=== PATIENT | female | born 1965 | race African-American/Black ===

== ENCOUNTER 2017-01-13 16:15 | Emergency (ER) | payer MEDICAID ==
[~2017-01-13] VITALS: Ht 160 cm; Wt 66.0 kg
[~2017-01-13 16:15] MED LIST: ALBU17I INH; ALBU8I INH; MEDR4PAK3 PO; PRED5PAK PO; VENTAER INH; ZITH250T PO
[2017-01-13 16:18] VITALS: BP 159/101; PULSE 104; RESP 16; TEMP 98.9; O2SAT 97
[2017-01-13] MEDS ORDERED: SODIUM CHLORIDE 0.9% FLUSH 10 ML FLUSH IVF PRN (16:30)
[2017-01-13] MEDS ORDERED: methylPREDNISolone SOD SUCC 125 MG/2 ML VIAL IVP ONE (16:30)
--- NOTE | 2017-01-13 16:33 | PD ---
HPI Chief Complaint: Respiratory Symptoms Time Seen by Provider: 16:26 Travel History International Travel<30 days: No Contact w/Intl Traveler<30days: No Traveled to known affect area: No History of Present Illness HPI 51-year-old female with history of anemia, asthma, here for evaluation of shortness of breath. The patient reports that stress of breath has been going on for the last week. She has been taking her Singulair and albuterol inhalers without improvement in symptoms. She has a cough productive of mucus. No hemoptysis. She is also having some intermittent sharp substernal chest pains that occur when she coughs. She denies history of cardiac disease. No history of DVT or PE. PFSH Past Medical History Asthma: Yes Diminished Hearing: No Respiratory: Yes (asthma) ?: Not LMP: 01/10/17 : 8 Para: 8 Social History Alcohol Use: No Tobacco Use: No Substance Use: No Allergies-Medications (Allergen,Severity, Reaction): Coded Allergies: Penicillin (Verified Allergy, Severe, RASH,VOMITING, 01/13/17) Reported Meds & Prescriptions Reported Meds & Active Scripts Active Reported Fusion (Multi-Vit/Iron-Vit C-Lactobacillus) 130-25-30 mg Cap 1 Cap PO DAILY Ventolin Hfa 18 GM Inh (Albuterol Sulfate) 90 Mcg/Act Aer 2 Puff INH Q4-6H PRN Singulair (Montelukast Sodium) 5 Mg Chew 5 Mg CHEW HS Iron (Ferrous Sulfate) 50 Mg Tab 50 Mg PO DAILY Review of Systems Except as stated in HPI: all other systems reviewed are Neg Physical Exam Narrative GENERAL: Well-developed, well-nourished, comfortable, no acute distress. SKIN: Focused skin assessment warm/dry. HEAD: Atraumatic. Normocephalic. EYES: Pupils equal and round. No scleral icterus. No injection or drainage. ENT: Mucous membranes pink and moist. NECK: Trachea midline. No JVD. CARDIOVASCULAR: Regular rate and rhythm. RESPIRATORY: No accessory muscle use. Mild end expiratory wheezes bilaterally. No rales or rhonchi. Breath sounds equal bilaterally. GASTROINTESTINAL: Abdomen soft, non-tender, nondistended. MUSCULOSKELETAL: No obvious deformities. No clubbing. No cyanosis. No edema. NEUROLOGICAL: Awake and alert. No obvious cranial nerve deficits. Motor grossly within normal limits. Normal speech. PSYCHIATRIC: Appropriate mood and affect; insight and judgment normal. Data Data Last Documented VS Vital Signs Date Time Temp Pulse Resp B/P Pulse Ox O2 Delivery O2 Flow Rate FiO2 01/13/17 19:10 99.5 106 22 162/90 98 Room Air Orders Complete Blood Count With Diff (01/13/17 16:29) Comprehensive Metabolic Panel (01/13/17 16:29) D-Dimer (01/13/17 16:29) Act Partial Throm Time (Ptt) (01/13/17 16:29) Prothrombin Time / Inr (Pt) (01/13/17 16:29) Ckmb (Isoenzyme) Profile (01/13/17 16:29) Troponin I (01/13/17 16:29) Iv Access Insert/Monitor (01/13/17 16:29) Electrocardiogram (01/13/17 16:29) Ecg Monitoring (01/13/17 16:29) Oximetry (01/13/17 16:29) Chest, Single Ap (01/13/17 16:29) Sodium Chloride 0.9% Flush (Ns Flush) (01/13/17 16:30) Methylprednisolone So Succ Inj (Solumedr (01/13/17 16:30) Albuterol-Ipratropium Neb (Duoneb Neb) (01/13/17 16:30) Beta Hcg (Quant/Titer) (01/13/17 16:29) Influenzae A/B Antigen (01/13/17 16:31) CKMB (01/13/17 17:05) CKMB% (01/13/17 17:05) Ct Pulmonary Angiogram (01/13/17 18:45) Iohexol 350 Inj (Omnipaque 350 Inj) (01/13/17 19:51) Labs Laboratory Tests Test 01/13/17 17:05 White Blood Count 3.5 TH/MM3 Red Blood Count 5.06 MIL/MM3 Hemoglobin 12.4 GM/DL Hematocrit 37.3 % Mean Corpuscular Volume 73.7 FL Mean Corpuscular Hemoglobin 24.5 PG Mean Corpuscular Hemoglobin 33.2 % Concent Red Cell Distribution Width 14.8 % Platelet Count 208 TH/MM3 Mean Platelet Volume 9.4 FL Neutrophils (%) (Auto) 63.2 % Lymphocytes (%) (Auto) 26.3 % Monocytes (%) (Auto) 9.7 % Eosinophils (%) (Auto) 0.4 % Basophils (%) (Auto) 0.4 % Neutrophils # (Auto) 2.3 TH/MM3 Lymphocytes # (Auto) 0.9 TH/MM3 Monocytes # (Auto) 0.3 TH/MM3 Eosinophils # (Auto) 0.0 TH/MM3 Basophils # (Auto) 0.0 TH/MM3 CBC Comment AUTO DIFF Differential Comment AUTO DIFF CONFIRMED Platelet Estimate NORMAL Platelet Morphology Comment NORMAL Prothrombin Time 11.3 SEC Prothromb Time International 1.0 RATIO Ratio Activated Partial 30.2 SEC Thromboplast Time D-Dimer Quantitative (PE/DVT) 0.63 MG/L FEU Sodium Level 143 MEQ/L Potassium Level 3.4 MEQ/L Chloride Level 110 MEQ/L Carbon Dioxide Level 24.5 MEQ/L Anion Gap 9 MEQ/L Blood Urea Nitrogen 10 MG/DL Creatinine 0.65 MG/DL Estimat Glomerular Filtration 116 ML/MIN Rate Random Glucose 117 MG/DL Calcium Level 8.4 MG/DL Total Bilirubin 0.2 MG/DL Aspartate Amino Transf 21 U/L (AST/SGOT) Alanine Aminotransferase 30 U/L (ALT/SGPT) Alkaline Phosphatase 104 U/L Total Creatine Kinase 262 U/L Creatine Kinase MB 1.0 NG/ML Creatine Kinase MB % 0.4 % Troponin I LESS THAN 0.02 NG/ML Total Protein 7.7 GM/DL Albumin 3.4 GM/DL Human Chorionic Gonadotropin, LESS THAN 1 Quant MIU/ML MDM Medical Decision Making Medical Screen Exam Complete: Yes Emergency Medical Condition: Yes Medical Record Reviewed: Yes Interpretation(s) EKG: Sinus, rate 100, left axis deviation, normal intervals, RSR prime, no acute ischemic abnormality. Differential Diagnosis Bronchitis, pneumonia, ACS, pneumothorax, pericarditis, PE Narrative Course Vital signs reviewed. CBC shows WBC 3.5, hemoglobin 12.4, hematocrit 37.3, platelets 208. CMP is remarkable for potassium 3.4, otherwise unremarkable. Cardiac enzymes are negative. Beta hCG is negative. D-dimer is 0.63. Chest x-ray: No acute disease. CT pulmonary angiogram: CONCLUSION: 1. Negative for pulmonary embolism. Minimal dependent atelectasis in the lungs. Presumed cyst left lobe liver. Patient was given 3 DuoNeb treatments and IV Solu-Medrol and reports feeling improved. She is resting comfortably. She was made aware of all findings including presumed cyst of the left lobe of the liver. I do not believe her chest pain is cardiac in nature. She likely has bronchitis. I will discharge her home with a prescription for Z-Iftikhar as well as steroids. She is stable for discharge home with outpatient follow-up with her primary care physician this week. She was informed on when to return to the emergency department pitcher verbalizes understanding and agreement with plan. Diagnosis Primary Impression: Bronchitis Referrals: Primary Care Physician 3 days Additional Instructions: Follow-up with your primary care physician this week. Return to the emergency department for worsening symptoms or any other concerns. Scripts Albuterol 18 GM Inh (Ventolin Hfa 18 GM Inh)90 Mcg/Act Aer2 Puff INH Q4-6H PRN ( SHORTNESS OF BREATH) #1 INHALER Ref 0 Prov:Clifford Poe MD 01/13/17 Prednisone 50 Mg Tab50 Mg PO DAILY 5 Days Ref 0 Prov:Clifford Poe MD 01/13/17 Azithromycin (Zithromax Z-Iftikhar)250 Mg Qwly192 Mg PO DIRECTED #1 DSPK Ref 0 500 MG (2 tabs) day 1, then 1 tab days 2-5. Prov:Clifford Poe MD 01/13/17 Disposition: 01 DISCHARGE HOME Condition: Stable Clifford Poe MD Jan 13, 2017 16:33
[2017-01-13] MEDS ORDERED: MONT5CHW2 CHEW (16:40)
[2017-01-13] MEDS ORDERED: FE F PO (16:40)
[2017-01-13] MEDS ORDERED: FERR1TAB58 PO (16:40)
[2017-01-13] MEDS ORDERED: VENTAER INH ×2 (16:40→20:20)
[2017-01-13] MEDS: RESP: ALBUTEROL 2.5 MG/IPRATROPIUM 0.5 MG NEB (SCH) INH (16:51)
--- NOTE | 2017-01-13 17:07 | RADHPO ---
EXAM DATE/TIME: 01/13/2017 16:39 [facility] COMPARISON: CHEST PA & LAT, November 14, 2014, 19:54. INDICATIONS : Short of breath. MEDICAL HISTORY : Asthma. SURGICAL HISTORY : None. ENCOUNTER: Initial ACUITY: 1 day PAIN SCORE: 0/10 LOCATION: Bilateral chest FINDINGS: A single view of the chest demonstrates the lungs to be symmetrically aerated without evidence of mas s, infiltrate or effusion. The cardiomediastinal contours are unremarkable. Osseous structures are intact. CONCLUSION: No acute disease. Travis Howard MD on January 13, 2017 at 17:05 Board Certified Radiologist. This report was verified electronically.
[2017-01-13 17:21] LABS: AUTOMATED NEUTROPHIL # 2.3 TH/MM3 (1.8-7.7); BASOPHIL % 0.4 % (0.0-2.0); EOSINOPHIL % 0.4 % (0.0-4.0); HEMATOCRIT 37.3 % (35.0-46.0); LYMPH % 26.3 % (9.0-44.0); LYMPHOCYTE # 0.9 TH/MM3 (1.0-4.8); MEAN CELL VOLUME 73.7 FL (80.0-100.0); MEAN CORPUSCULAR HEMOGLOBIN 24.5 PG (27.0-34.0); MEAN CORPUSCULAR HGB CONC 33.2 % (32.0-36.0); MONO % 9.7 % (0.0-8.0); NEUT % 63.2 % (16.0-70.0); PLATELET COUNT 208 TH/MM3 (150-450); RED BLOOD COUNT 5.06 MIL/MM3 (4.00-5.30); RED CELL DISTRIBUTION WIDTH 14.8 % (11.6-17.2); WHITE BLOOD COUNT 3.5 TH/MM3 (4.0-11.0)
[2017-01-13 17:24] VITALS: O2SAT 97
[2017-01-13 17:41] LABS: CHLORIDE 110 MEQ/L (98-107); POTASSIUM 3.4 MEQ/L (3.5-5.1); SODIUM (NA) 143 MEQ/L (136-145)
[2017-01-13 17:45] LABS: ANION GAP 9 MEQ/L (5-15); BICARBONATE 24.5 MEQ/L (21.0-32.0); BLOOD UREA NITROGEN 10 MG/DL (7-18)
[2017-01-13 17:48] LABS: ALT (GPT) 30 U/L (10-53); AST (GOT) 21 U/L (15-37); GLOMERULAR FILTRATION RATE 116 ML/MIN (>89)
[2017-01-13 17:49] LABS: TOTAL BILIRUBIN ADULT 0.2 MG/DL (0.2-1.0)
[2017-01-13 17:50] LABS: HEMO FLAGS AUTO DIFF
[2017-01-13 17:51] LABS: ALKALINE PHOSPHATASE 104 U/L (45-117); CREATINE KINASE 262 U/L (26-192)
[2017-01-13 17:53] LABS: BETA HCG QUANT LESS THAN 1 MIU/ML (0-5)
[2017-01-13 18:13] LABS: PLATELET ESTIMATE SMEAR NORMAL (NORMAL); PLATELET MORPHOLOGY NORMAL (NORMAL); SCAN/DIFF AUTO DIFF CONFIRMED
[2017-01-13 18:25] LABS: APTT (PATIENT) 30.2 SEC (24.3-30.1); PROTHROMBIN TIME - PATIENT 11.3 SEC (9.8-11.6)
[2017-01-13 18:29] VITALS: BP 162/87; PULSE 118; RESP 18; TEMP 99; O2SAT 100
[2017-01-13 19:10] VITALS: BP 162/90; PULSE 106; RESP 22; TEMP 99.5; O2SAT 98
[2017-01-13] MEDS ORDERED: IOHEXOL 350 MG/ML 10 ML VIAL (for RAD DIAG) IV ONE (19:51)
--- NOTE | 2017-01-13 20:03 | RADHPO ---
EXAM DATE/TIME: 01/13/2017 19:40 [facility] COMPARISON: No previous studies available for comparison. INDICATIONS : Shortness of breath. IV CONTRAST: 75 cc Omnipaque 350 (iohexol) IV RADIATION DOSE: 8.70 CTDIvol (mGy) MEDICAL HISTORY : Chronic astham, bronchitis. SURGICAL HISTORY : None. ENCOUNTER: Initial ACUITY: 1 day PAIN SCALE: 0/10 LOCATION: chest TECHNIQUE: Volumetric scanning of the chest was performed using a pulmonary embolism protocol MIP images were re constructed. Using automated exposure control and adjustment of the mA and/or kV according to patien t size, radiation dose was kept as low as reasonably achievable to obtain optimal diagnostic quality images. FINDINGS: No filling defects identified to suggest pulmonary embolic disease. There is no pleural or pericardia l effusion. Dependent atelectasis present in the lungs. No acute bony abnormalities. There is a large low attenuation lesion in the left lobe of the liver only partially visualized but measuring at leas t 8.6 cm in length most characteristic of a large hepatic cyst. CONCLUSION: 1. Negative for pulmonary embolism. Minimal dependent atelectasis in the lungs. Presumed cyst left lo be liver. Jerome Donnelly MD on January 13, 2017 at 19:57 Board Certified Radiologist. This report was verified electronically.
[2017-01-13] MEDS ORDERED: ZITHTAB PO (20:20)
[2017-01-13] MEDS ORDERED: PRED50 PO (20:20)
[2017-01-13 20:35] VITALS: BP 161/84
--- NOTE | 2017-01-14 13:07 | EKG ---
Date Performed: 01/13/2017 Time Performed: 16:45:46 PTAGE: 51 years EKG: Sinus tachycardia. rSr'(V1) - probable normal variant Poor R wave progression - probable no rmal variant Borderline ECG NO PREVIOUS TRACING DOCTOR: Zacarias Keita Interpretating Date/Time 01/14/2017 13:06:51
== END 2017-01-13 20:45 | disposition home or self-care (01) ==
LOC: PHED 16:15
DX: J40 Bronchitis, not specified as acute or chronic (principal); R05 Cough; J45.909 Unspecified asthma, uncomplicated; R94.31 Abnormal electrocardiogram [ECG] [EKG]
CPT/HCPCS: 71010; 71275; 80053; 82550; 82552; 84484; 84702; 85025; 85379; 85610; 85730; 87804; 93005; 94640; 94664; 96374; 99284; J2930; Q9967

== ENCOUNTER 2017-06-24 10:45 | Emergency (ER) | payer MEDICAID ==
[~2017-06-24] VITALS: Ht 160 cm; Wt 68.4 kg
[~2017-06-24 10:45] MED LIST changes: -ALBU17I INH; -ALBU8I INH; +FE F PO; +FERR1TAB58 PO; -MEDR4PAK3 PO; +MONT5CHW2 CHEW; +PRED50 PO; -PRED5PAK PO; -ZITH250T PO; +ZITHTAB PO
[2017-06-24 10:47] VITALS: BP 163/79; PULSE 99; RESP 17; TEMP 98.6; O2SAT 100
[2017-06-24] MEDS ORDERED: SODIUM CHLOR 0.9% 1000 ML INJ 1,000 ML IV ONE (11:15)
[2017-06-24 11:35] LABS: AUTOMATED NEUTROPHIL # 4.4 TH/MM3 (1.8-7.7); BASOPHIL # 0.1 TH/MM3 (0-0.2); BASOPHIL % 1.6 % (0.0-2.0); EOSINOPHIL # 0.2 TH/MM3 (0-0.4); EOSINOPHIL % 3.4 % (0.0-4.0); HEMATOCRIT 26.8 % (35.0-46.0); LYMPH % 25.9 % (9.0-44.0); LYMPHOCYTE # 1.8 TH/MM3 (1.0-4.8); MEAN CELL VOLUME 58.5 FL (80.0-100.0); MEAN CORPUSCULAR HGB CONC 30.7 % (32.0-36.0); MONO % 6.4 % (0.0-8.0); NEUT % 62.7 % (16.0-70.0); PLATELET COUNT 195 TH/MM3 (150-450); RED BLOOD COUNT 4.58 MIL/MM3 (4.00-5.30); RED CELL DISTRIBUTION WIDTH 20.2 % (11.6-17.2); WHITE BLOOD COUNT 6.9 TH/MM3 (4.0-11.0)
--- NOTE | 2017-06-24 11:40 | PD ---
HPI Chief Complaint: Abnormal Results Time Seen by Provider: 10:59 Travel History International Travel<30 days: No Contact w/Intl Traveler<30days: No Traveled to known affect area: No History of Present Illness HPI This is a 52-year-old female who presents to the emergency department with a history of anemia who was told by her doctor last week that she has low hemoglobin. She says she feels fine. She says she felt a little bit lightheaded 2 days ago but she doesn't feel short of breath and has no chest pain. She says she has heavy menstrual cycles. She is supposed to take iron but doesn't because she doesn't like how constipated she gets. PFSH Past Medical History Anemia: Yes Asthma: Yes Diminished Hearing: No Respiratory: Yes : 8 Para: 8 Social History Alcohol Use: No Tobacco Use: No Substance Use: No Allergies-Medications (Allergen,Severity, Reaction): Coded Allergies: penicillin G (Unverified Allergy, Severe, RASH,VOMITING, 06/24/17) Reported Meds & Prescriptions Reported Meds & Active Scripts Active Ventolin Hfa 18 GM Inh (Albuterol Sulfate) 90 Mcg/Act Aer 2 Puff INH Q4-6H PRN Prednisone 50 Mg Tab 50 Mg PO DAILY 5 Days Zithromax Z-Iftikhar (Azithromycin) 250 Mg Dspk 250 Mg PO DIRECTED 500 MG (2 tabs) day 1, then 1 tab days 2-5. Reported Fusion (Multi-Vit/Iron-Vit C-Lactobacillus) 130-25-30 mg Cap 1 Cap PO DAILY Ventolin Hfa 18 GM Inh (Albuterol Sulfate) 90 Mcg/Act Aer 2 Puff INH Q4-6H PRN Singulair (Montelukast Sodium) 5 Mg Chew 5 Mg CHEW HS Iron (Ferrous Sulfate) 50 Mg Tab 50 Mg PO DAILY Review of Systems Except as stated in HPI: all other systems reviewed are Neg Physical Exam Narrative GENERAL:Well appearing, no acute distress SKIN: Focused skin assessment warm and dry. HEAD: Atraumatic. Normocephalic. EYES: Pupils equal and round. No injection or drainage. ENT: Moist mucous membranes NECK: Trachea midline. CARDIOVASCULAR: Regular rate and rhythm. No murmur appreciated. RESPIRATORY: Clear to auscultation. Breath sounds equal bilaterally. GASTROINTESTINAL: Abdomen soft, non-tender, nondistended. MUSCULOSKELETAL: No obvious deformities. NEUROLOGICAL: Awake and alert. No obvious cranial nerve deficits. Moving all extremities. PSYCHIATRIC: Appropriate mood and affect; insight and judgment normal. Data Data Last Documented VS Vital Signs Date Time Temp Pulse Resp B/P (MAP) Pulse Ox O2 Delivery O2 Flow Rate FiO2 06/24/17 11:10 Room Air 06/24/17 10:47 98.6 99 17 163/79 (107) 100 Orders Orders Complete Blood Count With Diff (06/24/17 11:00) Comprehensive Metabolic Panel (06/24/17 11:00) Type And Screen (06/24/17 11:00) Sodium Chlor 0.9% 1000 Ml Inj (Ns 1000 M (06/24/17 11:15) Labs Laboratory Tests Test 06/24/17 11:27 White Blood Count 6.9 TH/MM3 Red Blood Count 4.58 MIL/MM3 Hemoglobin 8.2 GM/DL Hematocrit 26.8 % Mean Corpuscular Volume 58.5 FL Mean Corpuscular Hemoglobin 18.0 PG Mean Corpuscular Hemoglobin Concent 30.7 % Red Cell Distribution Width 20.2 % Platelet Count 195 TH/MM3 Mean Platelet Volume 8.8 FL Neutrophils (%) (Auto) 62.7 % Lymphocytes (%) (Auto) 25.9 % Monocytes (%) (Auto) 6.4 % Eosinophils (%) (Auto) 3.4 % Basophils (%) (Auto) 1.6 % Neutrophils # (Auto) 4.4 TH/MM3 Lymphocytes # (Auto) 1.8 TH/MM3 Monocytes # (Auto) 0.4 TH/MM3 Eosinophils # (Auto) 0.2 TH/MM3 Basophils # (Auto) 0.1 TH/MM3 CBC Comment AUTO DIFF Blood Urea Nitrogen 10 MG/DL Creatinine 0.60 MG/DL Random Glucose 98 MG/DL Total Protein 7.6 GM/DL Albumin 3.3 GM/DL Calcium Level 8.3 MG/DL Alkaline Phosphatase 113 U/L Aspartate Amino Transf (AST/SGOT) 20 U/L Alanine Aminotransferase (ALT/SGPT) 25 U/L Total Bilirubin 0.5 MG/DL Sodium Level 142 MEQ/L Potassium Level 3.7 MEQ/L Chloride Level 109 MEQ/L Carbon Dioxide Level 25.4 MEQ/L Anion Gap 8 MEQ/L Estimat Glomerular Filtration Rate 127 ML/MIN MDM Medical Decision Making Medical Screen Exam Complete: Yes Emergency Medical Condition: Yes Interpretation(s) No leukocytosis Hemoglobin is 8.2 Microcytic anemia Electrolytes are reassuring Differential Diagnosis Iron deficiency anemia, symptomatic anemia, GI bleed Narrative Course This is a 52-year-old female who was sent in by her primary care physician because of low hemoglobin. She is asymptomatic currently. She is slightly tachycardic but otherwise appears well. Her hemoglobin is 8.2. She acknowledges that she's not taking iron at home. I encouraged her to use her iron supplementation. I don't think she requires admission at this time. She can follow-up with her primary care physician and obtain a blood transfusion as needed as an outpatient. Patient will be discharged home. Diagnosis Primary Impression: Microcytic anemia Patient Instructions: General Instructions Additional Instructions: If you develop severe chest pain, shortness of breath, sweating, lightheadedness , dizziness or difficulty breathing return to the emergency department immediately. Followup with your primary care physician in 2-3 days if your symptoms are not resolved. Med/Other Pt SpecificInfo: Prescription(s) given Scripts Ferrous Sulfate (Iron) 325 Mg Cap 325 MG PO BIDPC for Nutritional Supplement, #60 TAB 0 Refills Prov: Ofelia Sarabia MD 06/24/17 Disposition: 01 DISCHARGE HOME Condition: Stable Ofelia Sarabia MD Jun 24, 2017 11:40
[2017-06-24 11:43] LABS: CHLORIDE 109 MEQ/L (98-107); POTASSIUM 3.7 MEQ/L (3.5-5.1); SODIUM (NA) 142 MEQ/L (136-145)
[2017-06-24 11:49] LABS: ANION GAP 8 MEQ/L (5-15); BICARBONATE 25.4 MEQ/L (21.0-32.0); BLOOD UREA NITROGEN 10 MG/DL (7-18)
[2017-06-24 11:52] LABS: ALT (GPT) 25 U/L (10-53); AST (GOT) 20 U/L (15-37); GLOMERULAR FILTRATION RATE 127 ML/MIN (>89)
[2017-06-24 11:54] LABS: TOTAL BILIRUBIN ADULT 0.5 MG/DL (0.2-1.0)
[2017-06-24 11:55] LABS: ALKALINE PHOSPHATASE 113 U/L (45-117); HEMO FLAGS AUTO DIFF
[2017-06-24 12:00] VITALS: BP 158/80; PULSE 88; RESP 18; O2SAT 99
[2017-06-24] MEDS ORDERED: FERR325C PO (12:09)
[2017-06-24 12:57] VITALS: BP 143/71
[2017-06-24 12:57] LABS: OVALOCYTES 1+ (NORMAL); TARGET CELLS 2+ (NORMAL)
[2017-06-24 12:58] LABS: PLATELET ESTIMATE SMEAR NORMAL (NORMAL); PLATELET MORPHOLOGY NORMAL (NORMAL); SCAN/DIFF AUTO DIFF CONFIRMED
== END 2017-06-24 13:00 | disposition home or self-care (01) ==
LOC: PHED 10:45
DX: D50.9 Iron deficiency anemia, unspecified (principal)
CPT/HCPCS: 80053; 85025; 86850; 86900; 86901; 96360; 99284; J7030

== ENCOUNTER 2018-03-30 10:15 | Emergency (ER) | payer MEDICAID ==
[~2018-03-30] VITALS: Ht 160 cm; Wt 75.0 kg
[~2018-03-30 10:15] MED LIST changes: -FERR1TAB58 PO; +FERR325C PO; -PRED50 PO; -ZITHTAB PO
[2018-03-30 10:19] VITALS: BP 182/99; PULSE 82; RESP 16; TEMP 97.9; O2SAT 96
[2018-03-30] MEDS ORDERED: FERR325T18 PO (10:48)
[2018-03-30] MEDS ORDERED: AMLO5TAB2 PO (10:48)
[2018-03-30 10:51] VITALS: BP 185/100; PULSE 70; RESP 15; O2SAT 98
[2018-03-30 10:53] VITALS: BP 180/96; PULSE 79
[2018-03-30] MEDS ORDERED: SODIUM CHLOR 0.9% 1000 ML INJ 1,000 ML IV ONE ×2 (10:57→11:00)
[2018-03-30 11:00] VITALS: BP 163/92; PULSE 104
[2018-03-30] MEDS ORDERED: METOCLOPRAMIDE HCL 10 MG/2 ML VIAL IVP ONE (11:00)
[2018-03-30] MEDS ORDERED: DEXAMETHASONE SOD PHOS 20 MG/5 ML VIAL IV PUSH ONE (11:00)
[2018-03-30] MEDS ORDERED: SODIUM CHLORIDE 0.9% FLUSH 10 ML FLUSH IVF PRN (11:00)
[2018-03-30] MEDS ORDERED: diphenhydrAMINE HCL 50 MG/ML VIAL IVP ONE (11:00)
--- NOTE | 2018-03-30 11:16 | PD ---
HPI Chief Complaint: Headache Time Seen by Provider: 10:52 Travel History International Travel<30 days: No Contact w/Intl Traveler<30days: No Traveled to known affect area: No History of Present Illness HPI Patient is a 53-year-old female who presents to the ER with complaints of a headache. Patient reports that she began having a left sided frontal headache this morning while in class. Patient reports photophobia with her headache with associated nausea with no vomiting. Patient reports that she had a similar headache last week, she took an aspirin and laid down and felt better. Patient reports that since she was in class, she did not have access to any medications and came directly from school to the ER for evaluation. Patient reports that she has been dealing with headaches for a while, reports that symptoms have been similar to her previous headaches, reports that she has had photophobia with nausea with her symptoms. Reports that symptoms usually resolve after taking aspirin and laying down. Patient reports no diagnosis of migraines in the past, has not seen a neurologist. Denies any vision changes, denies fever/chills. Denies chest pain/sob. PFSH Past Medical History Anemia: Yes Asthma: Yes Diminished Hearing: No Gastrointestinal Disorders: Yes (iron deficiency anemia, iron infusions) Hypertension: Yes Respiratory: Yes (bronchitis) Immunizations Current: Yes Tetanus Vaccination: Unknown Influenza Vaccination: Yes ?: Not : 8 Para: 8 Past Surgical History Gynecologic Surgery: Yes Hysterectomy: Yes Social History Alcohol Use: No Tobacco Use: No Substance Use: No Allergies-Medications (Allergen,Severity, Reaction): Coded Allergies: penicillin G (Unverified Allergy, Severe, RASH,VOMITING, 03/30/18) Reported Meds & Prescriptions Reported Meds & Active Scripts Active Iron (Ferrous Sulfate) 325 Mg Cap 325 Mg PO BIDPC Reported Ferrous Sulfate 325 Mg (65 Mg Iron) Tablet 325 Mg PO DAILY Amlodipine (Amlodipine Besylate) 5 Mg Tab 5 Mg PO DAILY Fusion (Multi-Vit/Iron-Vit C-Lactobacillus) 130-25-30 mg Cap 1 Cap PO DAILY Ventolin Hfa 18 GM Inh (Albuterol Sulfate) 90 Mcg/Act Aer 2 Puff INH Q4-6H PRN Singulair (Montelukast Sodium) 5 Mg Chew 5 Mg CHEW HS Review of Systems General / Constitutional: No: Fever Eyes: No: Visual changes HENT: Positive: Headaches, No: Neck Pain Cardiovascular: No: Chest Pain or Discomfort Respiratory: No: Shortness of Breath Gastrointestinal: No: Abdominal Pain Genitourinary: No: Dysuria Musculoskeletal: No: Pain Skin: No Rash Neurologic: Positive: Dizziness, Headache, No: Weakness Psychiatric: No: Depression Endocrine: No: Polydipsia Hematologic/Lymphatic: No: Easy Bruising Physical Exam Narrative GENERAL: NAD SKIN: Focused skin assessment warm/dry. HEAD: Atraumatic. Normocephalic. EYES: Pupils equal and round. No scleral icterus. No injection or drainage. ENT: No nasal bleeding or discharge. Mucous membranes pink and moist. NECK: Trachea midline. No JVD. CARDIOVASCULAR: Regular rate and rhythm. No murmur appreciated. RESPIRATORY: No accessory muscle use. Clear to auscultation. Breath sounds equal bilaterally. GASTROINTESTINAL: Abdomen soft, non-tender, nondistended. Hepatic and splenic margins not palpable. MUSCULOSKELETAL: No obvious deformities. No clubbing. No cyanosis. No edema. NEUROLOGICAL: Awake and alert. No obvious cranial nerve deficits. Motor grossly within normal limits. Normal speech. CN 2- 12 grossly intact with no neurovascular compromise PSYCHIATRIC: Appropriate mood and affect; insight and judgment normal. Data Data Last Documented VS Vital Signs Date Time Temp Pulse Resp B/P (MAP) Pulse Ox O2 Delivery O2 Flow Rate FiO2 03/30/18 12:30 82 18 158/84 (108) 97 Room Air 03/30/18 10:19 97.9 Orders Orders Complete Blood Count With Diff (03/30/18 10:57) Comprehensive Metabolic Panel (03/30/18 10:57) Prothrombin Time / Inr (Pt) (03/30/18 10:57) Act Partial Throm Time (Ptt) (03/30/18 10:57) Ct Brain W/O Iv Contrast(Rout) (03/30/18 10:57) Ecg Monitoring (03/30/18 10:57) Iv Access Insert/Monitor (03/30/18 10:57) Oximetry (03/30/18 10:57) Sodium Chloride 0.9% Flush (Ns Flush) (03/30/18 11:00) Diphenhydramine Inj (Benadryl Inj) (03/30/18 11:00) Metoclopramide Inj (Reglan Inj) (03/30/18 11:00) Sodium Chlor 0.9% 1000 Ml Inj (Ns 1000 M (03/30/18 10:57) Dexamethasone Inj (Decadron Inj) (03/30/18 11:00) Sodium Chlor 0.9% 1000 Ml Inj (Ns 1000 M (03/30/18 11:00) Labs Laboratory Tests Test 03/30/18 11:15 White Blood Count 8.8 TH/MM3 Red Blood Count 5.56 MIL/MM3 Hemoglobin 13.5 GM/DL Hematocrit 40.5 % Mean Corpuscular Volume 72.8 FL Mean Corpuscular Hemoglobin 24.2 PG Mean Corpuscular Hemoglobin Concent 33.2 % Red Cell Distribution Width 16.2 % Platelet Count 215 TH/MM3 Mean Platelet Volume 9.2 FL Neutrophils (%) (Auto) 71.6 % Lymphocytes (%) (Auto) 20.0 % Monocytes (%) (Auto) 5.9 % Eosinophils (%) (Auto) 1.9 % Basophils (%) (Auto) 0.6 % Neutrophils # (Auto) 6.3 TH/MM3 Lymphocytes # (Auto) 1.8 TH/MM3 Monocytes # (Auto) 0.5 TH/MM3 Eosinophils # (Auto) 0.2 TH/MM3 Basophils # (Auto) 0.1 TH/MM3 CBC Comment DIFF FINAL Differential Comment Prothrombin Time 10.2 SEC Prothromb Time International Ratio 1.0 RATIO Activated Partial Thromboplast Time 26.1 SEC Blood Urea Nitrogen 9 MG/DL Creatinine 0.60 MG/DL Random Glucose 86 MG/DL Total Protein 8.1 GM/DL Albumin 3.6 GM/DL Calcium Level 8.4 MG/DL Alkaline Phosphatase 129 U/L Aspartate Amino Transf (AST/SGOT) 28 U/L Alanine Aminotransferase (ALT/SGPT) 43 U/L Total Bilirubin 0.4 MG/DL Sodium Level 142 MEQ/L Potassium Level 3.7 MEQ/L Chloride Level 107 MEQ/L Carbon Dioxide Level 24.9 MEQ/L Anion Gap 10 MEQ/L Estimat Glomerular Filtration Rate 127 ML/MIN [facility] Medical Decision Making Medical Screen Exam Complete: Yes Emergency Medical Condition: Yes Medical Record Reviewed: Yes Interpretation(s) Vital Signs Date Time Temp Pulse Resp B/P (MAP) Pulse Ox O2 Delivery O2 Flow Rate FiO2 03/30/18 10:53 79 180/96 (124) 03/30/18 10:51 70 15 185/100 (128) 98 03/30/18 10:50 Room Air 03/30/18 10:19 97.9 82 16 182/99 (126) 96 Differential Diagnosis Cephalgia, intracranial mass, accelerated hypertension Narrative Course During the course of the patients emergency department visit, the patients history, examination, and differential diagnosis were reviewed with the patient. The patient was placed on a monitoring manager with oximetry and frequent blood pressure monitoring. The patient had an IV access obtained and blood work sent for analysis. The patient was initially provided migraine cocktail The patients laboratory studies were reviewed and remarkable for CBC & BMP Diagram 03/30/18 11:15 Total Protein 8.1, Albumin 3.6, Calcium Level 8.4 L, Alkaline Phosphatase 129 H , Aspartate Amino Transf (AST/SGOT) 28, Alanine Aminotransferase (ALT/SGPT) 43, Total Bilirubin 0.4 Radiology studies were reviewed and remarkable for Last Impressions Head CT 03/30/18 1057 Signed Impressions: CONCLUSION: 1. Unremarkable CT scan of the brain. Patient reports that she is feeling much better at this time, patient with complete resolution of her headache. All labs and all studies were reviewed with patient, she will return to the emergency room as needed. Diagnosis Primary Impression: Cephalgia Qualified Codes: R51 - Headache Patient Instructions: General Instructions Departure Forms: Tests/Procedures, Work Release Enter return to work date: Mar 31, 2018 Additional Instructions: Please provide patient with a copy of their lab work and studies at discharge* * Please follow up with your primary care doctor in 2-3 days Return to the ER if symptoms worsen or progress Return to the ER as needed Disposition: 01 DISCHARGE HOME Condition: Stable Randi Vergara DO Mar 30, 2018 11:16
[2018-03-30 11:43] LABS: AUTOMATED NEUTROPHIL # 6.3 TH/MM3 (1.8-7.7); BASOPHIL # 0.1 TH/MM3 (0-0.2); BASOPHIL % 0.6 % (0.0-2.0); EOSINOPHIL # 0.2 TH/MM3 (0-0.4); EOSINOPHIL % 1.9 % (0.0-4.0); HEMATOCRIT 40.5 % (35.0-46.0); HEMOGLOBIN 13.5 GM/DL (11.6-15.3); LYMPHOCYTE # 1.8 TH/MM3 (1.0-4.8); MEAN CELL VOLUME 72.8 FL (80.0-100.0); MEAN CORPUSCULAR HEMOGLOBIN 24.2 PG (27.0-34.0); MEAN CORPUSCULAR HGB CONC 33.2 % (32.0-36.0); MEAN PLATELET VOLUME 9.2 FL (7.0-11.0); MONO % 5.9 % (0.0-8.0); MONOCYTE # 0.5 TH/MM3 (0-0.9); NEUT % 71.6 % (16.0-70.0); PLATELET COUNT 215 TH/MM3 (150-450); RED BLOOD COUNT 5.56 MIL/MM3 (4.00-5.30); RED CELL DISTRIBUTION WIDTH 16.2 % (11.6-17.2); WHITE BLOOD COUNT 8.8 TH/MM3 (4.0-11.0)
[2018-03-30 11:57] LABS: PROTHROMBIN TIME - PATIENT 10.2 SEC (9.8-11.6)
[2018-03-30 12:17] LABS: ALBUMIN 3.6 GM/DL (3.4-5.0); ALT (GPT) 43 U/L (10-53); AST (GOT) 28 U/L (15-37); BICARBONATE 24.9 MEQ/L (21.0-32.0); BLOOD UREA NITROGEN 9 MG/DL (7-18); CALCIUM 8.4 MG/DL (8.5-10.1); CHLORIDE 107 MEQ/L (98-107); GLOMERULAR FILTRATION RATE 127 ML/MIN (>89); GLUCOSE,RANDOM 86 MG/DL (74-106); SODIUM (NA) 142 MEQ/L (136-145)
[2018-03-30 12:19] LABS: ALKALINE PHOSPHATASE 129 U/L (45-117); TOTAL BILIRUBIN ADULT 0.4 MG/DL (0.2-1.0); TOTAL PROTEIN 8.1 GM/DL (6.4-8.2)
[2018-03-30 12:30] VITALS: BP 158/84; PULSE 82; RESP 18; O2SAT 97
--- NOTE | 2018-03-30 13:02 | RADRPT ---
EXAM DATE: 03/30/2018 12:52 PM EDT AGE/SEX: 53 years / Female INDICATIONS: Cephalgia. CLINICAL DATA: This is the patient's initial encounter. Patient reports that signs and symptoms have been present for 1 day and indicates a pain score of 10/10. MEDICAL/SURGICAL HISTORY: Hypertension. Asthma. Anemia. Hysterectomy. RADIATION DOSE: 56.35 CTDI (mGy) COMPARISON: No prior exams available for comparison. TECHNIQUE: CT of the head without contrast. Using automated exposure control and adjustment of the mA and/or kV according to patient size, radiation dose was kept as low as reasonably achievable to ob tain optimal diagnostic quality images. DICOM format image data is available electronically for revi ew and comparison. FINDINGS: Cerebrum: The ventricles are normal for age. No evidence of midline shift, mass lesion, hemorrhage or acute infarction. No extraaxial fluid collections are seen. Posterior Fossa: The cerebellum and brainstem are intact. The 4th ventricle is midline. The cerebe llopontine angle is unremarkable. Extracranial: The visualized portion of the orbits is intact. Skull: The calvaria is intact. No evidence of skull fracture. CONCLUSION: 1. Unremarkable CT scan of the brain. Electronically signed by: Vicente Kraft MD 03/30/2018 1:01 PM EDT
[2018-03-30 14:52] VITALS: BP 147/84
== END 2018-03-30 14:50 | disposition home or self-care (01) ==
LOC: NEPD 10:15
DX: R51 Headache (principal); J45.909 Unspecified asthma, uncomplicated; I10 Essential (primary) hypertension; D50.9 Iron deficiency anemia, unspecified; Z79.899 Other long term (current) drug therapy; R42 Dizziness and giddiness; R11.0 Nausea
CPT/HCPCS: 70450; 80053; 85025; 85610; 85730; 96361; 96374; 96375; 99284; J1100; J1200; J2765; J7030